=== PATIENT | female | born 1990 | race Caucasian/White ===

== ENCOUNTER 2017-08-28 06:59 | Emergency (ER) | payer MEDICAID, OTHER ==
--- NOTE | 2017-08-28 07:38 | EDPHY ---
HPI/HX/ROS/PE/MDM Narrative: CHIEF COMPLAINT: Feeling suicidal HPI: The patient is a 27-year-old female with a history of chronic mental health disease. She states that she was discharged on Saturday from [facility] for suicidal ideation and is very upset that they did not keep her there longer. She states she is still feeling suicidal. She was admitted to [facility] because she apparently overdosed on her [place] and Benadryl. She denies any ingestion or overdose since her discharge. She denies a specific plan. REVIEW OF SYSTEMS: Aside from elements discussed in the HPI, a comprehensive 10-point review of systems was reviewed and is negative. PMH: Includes depression, history of suicidality. History of psychiatric admission. SOCIAL HISTORY: Homeless. Denies drug abuse. PHYSICAL EXAM: General:Patient is alert, in no acute distress. She is somewhat disheveled and arrives with a large clear plastic bag containing all of her clothing and belongings. ENT:Eyes are normal to inspection. ENT inspection normal. Neck: Normal inspection. Full range of motion. Respiratory:No respiratory distress. Breath sounds normal bilaterally. Cardiovascular: Regular rate and rhythm. Strong peripheral pulses. Normal cap refill. Abdomen:The abdomen is nontender to palpation. There are no peritoneal signs. There are normal bowel sounds. Skin: Normal color. No rash. Warm and dry. Extremities: Normal appearance. Full range of motion. Neuro: Normal motor function. Normal sensory function. Psychiatric: Odd affect, admits to suicidal ideation, no apparent hallucinations on exam. (Steven Hernandez) MDM: I assumed care of this patient from Dr. Hernandez at 3:00 p.m.. Was notified by the mental health cook helper [employer] that they are seeking crisis stabilization unit placement for her. It is felt that if no such placement can be found she will likely be discharged in the morning. She will be given her usual prescription medications. (Ira Giordano) Re-assumed care at 0700. Patient has been evaluated by mental health and they feel she is safe for discharge. (Steven Hernandez) - Data Points Laboratory Results: Laboratory Results 08/28/17 12:05 08/28/17 12:05 Medications Given: Melatonin (Melatonin) 6 mg PO [facility] Stop: 02/24/18 20:59 Last Admin: 08/28/17 22:00 Dose: 6 mg Olanzapine (Olanzapine) 10 mg PO HS ANNEMARIE Stop: 02/24/18 20:59 Last Admin: 08/28/17 22:00 Dose: 10 mg Ranitidine HCl (Zantac) 150 mg PO BID ANNEMARIE Stop: 02/24/18 20:59 Last Admin: 08/28/17 22:00 Dose: 150 mg Discontinued Medications Divalproex Sodium (Depakote Er) 500 mg PO EDNOW ONE Stop: 08/28/17 21:31 Last Admin: 08/28/17 22:00 Dose: 500 mg General Time Seen by Provider: 08/28/17 07:33 Initial Vital Signs: Initial Vital Signs Temperature (C) 36.6 C 08/28/17 07:03 Heart Rate 131 H 08/28/17 07:03 Respiratory Rate 18 08/28/17 07:03 Blood Pressure 139/88 H 08/28/17 07:03 O2 Sat (%) 96 08/28/17 07:03 O2 Delivery Mode Room Air Allergies/Adverse Reactions: latex Allergy (Verified 08/28/17 07:10) penicillin V Allergy (Verified 08/28/17 07:08) quetiapine [From Seroquel] Allergy (Verified 08/28/17 07:10) sertraline [From Zoloft] Allergy (Verified 08/28/17 07:08) Home Medications: Medication Instructions Recorded Cetirizine 08/28/17 Divalproex 08/28/17 Fluticasone Nasal 08/28/17 Hydrochlorothiazide 08/28/17 Levothyroxine 08/28/17 Melatonin 08/28/17 OLANZapine 08/28/17 Proair Hfa 08/28/17 Ranitidine HCl 08/28/17 hydrOXYzine HCL 08/28/17 Departure - Departure Disposition: Home, Routine, Self-Care Clinical Impression: PTSD (post-traumatic stress disorder), Developmental disability Condition: Good Instructions: Additional Information Additional Instructions: Follow-up with your mental health provider as directed. Return to the ED for thoughts of self-harm, racing thoughts or other concerns. Referrals: PATRICIA DE [facility] VEGA [Other] - As per Instructions
[2017-08-28 12:17] LABS: PLATELET COUNT 282 10^3/uL (150-400)
[2017-08-28] MEDS ORDERED: ALBUTEROL 60 PUFFS/8 GM MDI IH PRN (18:00)
[2017-08-28] MEDS ORDERED: hydrOXYzine HCL 25 MG TAB PO PRN (21:00)
[2017-08-28] MEDS ORDERED: DIVALPROEX ER 500 MG TAB PO SCH (21:00)
[2017-08-28] MEDS ORDERED: OLANZapine 5 MG TAB PO SCH (21:00)
[2017-08-28] MEDS ORDERED: MELATONIN 3 MG TAB PO SCH (21:00)
[2017-08-28] MEDS ORDERED: DIVALPROEX ER 500 MG TAB PO ONE (21:30)
[2017-08-28] MEDS: RANITIDINE HCL 150 MG/10 ML UDCUP PO SCH (22:00)
[2017-08-29] MEDS ORDERED: LEVOTHYROXINE 112 MCG TAB PO SCH (06:00)
[2017-08-29] MEDS ORDERED: CETIRIZINE 10 MG TAB PO SCH (09:00)
[2017-08-29] MEDS ORDERED: HYDROCHLOROTHIAZIDE 25 MG TAB PO SCH (09:00)
[2017-08-29] MEDS: RANITIDINE HCL 150 MG/10 ML UDCUP PO SCH (12:35)
[2017-08-29 12:39] VITALS: BP 122/85
== END 2017-08-29 12:54 | disposition home or self-care (01) ==
LOC: EEVIPCON 06:59
DX: F43.10 Post-traumatic stress disorder, unspecified (principal); F89 Unspecified disorder of psychological development; Z91.040 Latex allergy status
CPT/HCPCS: 80305